=== PATIENT | female | born 1960 | race Native Hawaiian/Other Pacific Islander ===

== ENCOUNTER 2017-09-20 07:04 | Day surgery (SDC) | payer BC ==
[2017-09-20 08:01] VITALS: TEMP 97.1
[2017-09-20 08:02] VITALS: BMI 37.0
[2017-09-20] MEDS ORDERED: Midazolam 2 MG/2 ML VIAL ONE (09:55)
[2017-09-20] MEDS ORDERED: Lactated Ringer's 1,000 ML IV ONE (09:55)
[2017-09-20 12:24] VITALS: O2SAT 98
[2017-09-20 12:30] VITALS: BP 126/75; PULSE 78; RESP 18
== END 2017-09-20 12:18 | disposition home or self-care (01) ==
LOC: C.ENDO 07:04
PROVIDERS: ATTEND Internal Medicine Gastroenterology
DX: Z12.11 Encounter for screening for malignant neoplasm of colon (principal); Z86.010 Personal history of colon polyps; K57.30 Diverticulosis of large intestine without perforation or abscess without bleeding; D12.5 Benign neoplasm of sigmoid colon; K64.1 Second degree hemorrhoids
CPT/HCPCS: 45385; 82948; 88305; J2250; J2405; J7120

== ENCOUNTER 2017-09-21 10:29 | Emergency (ER) | payer BC ==
[2017-09-21 10:30] VITALS: BMI 37.0
--- NOTE | 2017-09-21 11:03 | C.PDOC ---
History Of Present Illness DYSURIA, URINARY INCONT, FREQ SINCE YEST. SUBJ FEVER. NO NV, CHILLS. S/P COLONOSCOPY 09/20 BUT NO ABD PAIN, GI BLEED EXAM MILD DIST NONTOXIC ABD NEG REMAINDE RNEG Time Seen by Provider: 09/21/17 10:49 Chief Complaint (Nursing): Female Genitourinary History Per: Patient History/Exam Limitations: no limitations Past Medical History Reviewed: Historical Data, Nursing Documentation, Vital Signs Vital Signs: Last Vital Signs Temp 97.8 F 09/21/17 10:38 Pulse 78 09/21/17 10:38 Resp 18 09/21/17 10:38 BP 136/94 H 09/21/17 10:38 Pulse Ox 96 09/21/17 11:25 - Medical History PMH: Bronchitis, Colonic Polyps, Gastritis, HTN, Hypercholesterolemia, Peripheral Edema (LEFT LEG), Pneumonia (5 YEARS AGO), Rheumatoid Arthritis, Sleep Apnea (C PAP) Surgical History: Endoscopy Family History: States: No Known Family Hx - Social History Hx Alcohol Use: No Hx Substance Use: No Review Of Systems Constitutional: Negative for: Fever, Chills Respiratory: Negative for: Cough Gastrointestinal: Negative for: Nausea, Vomiting, Abdominal Pain, Melena, Hematochezia Genitourinary: Positive for: Dysuria, Frequency, Incontinence Skin: Negative for: Rash Physical Exam - Physical Exam Appears: Non-toxic, No Acute Distress (MILD DISTRESS) Skin: Normal Color, Warm, Dry, No Rash Head: Normacephalic Eye(s): bilateral: PERRL Neck: Normal ROM Cardiovascular: Rhythm Regular, No Murmur Respiratory: Normal Breath Sounds, No Accessory Muscle Use Gastrointestinal/Abdominal: Soft, No Tenderness, No Guarding, No Rebound Neurological/Psych: Oriented x3, Normal Speech ED Course And Treatment O2 Sat by Pulse Oximetry: 96 (RA) Pulse Ox Interpretation: Normal Disposition Counseled Patient/Family Regarding: Studies Performed, Diagnosis, Need For Followup, Rx Given - Disposition Referrals: YOUR,PMD [Other] Disposition: HOME/ ROUTINE Disposition Time: 11:42 Condition: IMPROVED Prescriptions: Nitrofurantoin Macrocrystals [Macrobid] 100 mg PO BID #10 cap Phenazopyridine HCl [Pyridium] 200 mg PO BID #6 tablet Instructions: Urinary Tract Infections in Adults Forms: [employer] ([place]) - Clinical Impression Clinical Impression: UTI (urinary tract infection) - Scribe Statement The provider has reviewed the documentation as recorded by the Scribe (Kleber Nugent) All medical record entries made by the Scribe were at my direction and personally dictated by me. I have reviewed the chart and agree that the record accurately reflects my personal performance of the history, physical exam, medical decision making, and the department course for this patient. I have also personally directed, reviewed, and agree with the discharge instructions and disposition.
[2017-09-21 11:37] LABS: URINE BACTERIA RARE (<OCC); URINE BILIRUBIN NEGATIVE (NEGATIVE); URINE BLOOD 3+ (NEGATIVE); URINE CLARITY Hazy (Clear); URINE COLOR Red (YELLOW); URINE GLUCOSE (UA) 1+ mg/dL (Normal); URINE LEUKOCYTE ESTERASE 2+ Leu/uL (Negative); URINE PROTEIN 3+ mg/dL (NEGATIVE); URINE UROBILINOGEN NORMAL mg/dL (0.2-1.0)
[2017-09-21 11:47] VITALS: BP 128/78; PULSE 69; RESP 20; TEMP 98.1; O2SAT 95
== END 2017-09-21 11:55 | disposition home or self-care (01) ==
LOC: C.ER 10:29
DX: N39.0 Urinary tract infection, site not specified (principal)